=== PATIENT | male | born 1985 | race Caucasian/White ===

== ENCOUNTER 2022-06-24 13:55 | Emergency (ER) | payer BC, OTHER ==
[~2022-06-24] VITALS: Ht 180.3 cm; Wt 81.6 kg
[2022-06-24] MEDS ORDERED: BACITRACIN TOP OINT 1 UD PKG TOP ONE (14:15)
[2022-06-24] MEDS ORDERED: HYDROcodone-ACET 10/325MG TAB PO ONE (14:15)
[2022-06-24] MEDS ORDERED: ONDANSETRON HCL 4 MG/2 ML VIAL IM ONE (15:45)
[2022-06-24] MEDS ORDERED: HYDROmorphone HCL 2 MG/ML VL/or syr IM ONE (15:45)
[2022-06-24] MEDS ORDERED: HYDR-4902 PO (16:22)
[2022-06-24 16:31] VITALS: BP 112/58
== END 2022-06-24 16:37 | disposition home or self-care (01) ==
LOC: ER 13:55
DX: S42.022A Displaced fracture of shaft of left clavicle, initial encounter for closed fracture (principal); S30.0XXA Contusion of lower back and pelvis, initial encounter; S09.8XXA Other specified injuries of head, initial encounter; V29.99XA Rider (driver) (passenger) of other motorcycle injured in unspecified traffic accident, initial encounter; Y93.89 Activity, other specified; Y92.488 Other paved roadways as the place of occurrence of the external cause; Y99.8 Other external cause status
CPT/HCPCS: 70450; 72125; 72131; 72192; 73000; 73030; 96372; 99285; J1170; J2405